=== PATIENT | male | born 1995 | race Caucasian/White ===

== ENCOUNTER 2018-10-26 18:53 | Emergency (ER) | payer OTHER ==
--- NOTE | 2018-10-26 19:17 | EDM.PDOC ---
ED HPI GENERAL MEDICAL PROBLEM - General Chief Complaint: ENT Problem Stated Complaint: LEFT EAR PLUGGED Time Seen by Provider: 10/26/18 19:10 Source of Information: Reports: Patient History Limitations: Reports: No Limitations - History of Present Illness INITIAL COMMENTS - FREE TEXT/NARRATIVE: Prateek is an otherwise healthy 23 year old female who presents to the ED today with c/o left ear fullness and feeling slightly off balance today. Patient also has mild decrease in left hearing. Patient denies any other complaints today. No headache, fever, syncope or other concerns. Onset: Today - Related Data Allergies Allergy/AdvReac Type Severity Reaction Status Date / Time Penicillins Allergy Cannot Verified 10/26/18 19:04 Remember Home Meds: Home Meds NK [No Known Home Meds] 10/26/18 [History] Past Medical History Psychiatric History: Reports: ADHD - Past Surgical History HEENT Surgical History: Reports: Tonsillectomy Musculoskeletal Surgical History: Reports: Arthroscopic Procedure Social & Family History - Tobacco Use Smoking Status *Q: Never Smoker ED ROS ENT - Review of Systems Review Of Systems: ROS reveals no pertinent complaints other than HPI. ED EXAM, ENT - Physical Exam Exam: See Below Exam Limited By: No Limitations General Appearance: Alert, WD/WN, No Apparent Distress Eye Exam: Bilateral Eye: EOMI, PERRL Ears: Normal External Exam, Other (Right TM is normal, Left TM is obscured by cerumen impaction) Nose: Normal Inspection Mouth/Throat: Normal Inspection Head: Atraumatic Neck: Normal Inspection Respiratory/Chest: No Respiratory Distress, Lungs Clear Cardiovascular: Regular Rate, Rhythm Extremities: Normal Inspection Neurological: Alert, Oriented, CN II-XII Intact Psychiatric: Normal Affect, Normal Mood Skin: Warm, Dry, Intact Lymphatic: No Adenopathy Course - Vital Signs Last Recorded V/S: Last Vital Signs Temp 36.3 C 10/26/18 19:08 Pulse 67 10/26/18 19:08 Resp 14 10/26/18 19:08 BP 113/76 10/26/18 19:08 Pulse Ox 99 10/26/18 19:08 Cerumen impaction, resolved here. Patient reports feeling better. Reasons to return to the ED discussed. Patient agreeable to plan of care and discharged in stable condition. Departure - Departure Time of Disposition: 19:30 Disposition: Home, Self-Care 01 Condition: Good Clinical Impression: Impacted cerumen Qualifiers: Laterality: left Qualified Code(s): H61.22 - Impacted cerumen, left ear - Discharge Information Instructions: Earwax Buildup, Adult Referrals: PCP,None [Primary Care Provider] -
== END 2018-10-26 19:32 | disposition home or self-care (01) ==
LOC: JP.ED 18:53
DX: H61.22 Impacted cerumen, left ear (principal); Z88.0 Allergy status to penicillin
CPT/HCPCS: 99282